=== PATIENT | female | born 2000 | race Caucasian/White ===

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

== ENCOUNTER 2020-09-07 03:49 | Inpatient (IN) ==
[2020-09-07 04:24] LABS: Appearance Urine Clear (Clear); Bilirubin Urine Negative (Negative); Blood Urine Negative (Negative); Color Urine Yellow; Glucose Urine UA Negative (Negative); Ketones Urine 2+ (Negative); Leukocyte Esterase Urine Negative (Negative); Nitrite Urine Negative (Negative); Protein Urine Negative (Negative); Specific Gravity Urine 1.024 (1.000-1.030); Urobilinogen Urine Negative (Negative); pH Urine 5.5 (4.5-7.5)
[2020-09-07 04:39] LABS: Basophils # (auto) 0.01 K/uL (0-0.2); Basophils % (auto) 0.1 %; Eosinophils # (auto) 0.11 K/uL (0-0.5); Eosinophils % (auto) 1.6 %; Hemoglobin 14.4 g/dL (12.0-16.0); Immature Granulocytes # (auto) 0.01 K/uL (0.00-0.02); Immature Granulocytes % (auto) 0.1 %; Lymphocytes # (auto) 1.41 K/uL (1.2-3.4); Mean Corpuscular Hemoglobin 34.1 pg (25-34); Mean Corpuscular Hgb Conc 35.1 g/dL (32-36); Mean Corpuscular Volume 97.2 fL (80-100); Mean Platelet Volume 10.5 fL (7.4-10.4); Monocytes # (auto) 0.43 K/uL (0.11-0.59); Monocytes % (auto) 6.4 %; Neutrophils # (auto) 4.74 K/uL (1.4-6.5); Neutrophils % (auto) 70.8 %; Platelet Count 247 K/uL (130-400); RDW Coefficient of Variation 13.8 % (11.5-14.5); RDW Standard Deviation 49.4 fL (36.4-46.3); Red Blood Count 4.22 M/uL (4.2-5.4); White Blood Count 6.71 K/uL (4.8-10.8)
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
[2020-09-07 04:43] LABS: Amphetamines+Metham, Urine Neg (Neg); Barbiturates, Urine Neg (Neg); Benzodiazepine, Urine Neg (Neg); Cocaine, Urine Neg (Neg); MDMA (Ecstacy), Urine Neg (Neg); Methadone, Urine Neg (Neg); Opiate, Urine Neg (Neg); Phencyclidine, Urine Neg (Neg)
[2020-09-07 04:44] LABS: Pregnancy Test, Urine Negative (Negative)
[2020-09-07 04:56] LABS: Alanine Aminotransferase 17 U/L (12-78); Albumin Level 3.9 gm/dl (3.4-5.0); Aspartate Aminotransferase 11 U/L (15-37); BUN Creatinine Ratio 15.7 (10-20); Blood Urea Nitrogen 9 mg/dl (7-18); Calcium 8.9 mg/dl (8.5-10.1); Carbon Dioxide 27 mmol/L (21-32); Chloride 108 mmol/L (98-107); Creatinine Clr Calc Pharmacy 135.2 ml/min; Est GFR (African American) > 150.0 ml/min; Est GFR (Non-African American) 131.6 ml/min; Glucose 86 mg/dl (70-99); Potassium 3.5 mmol/L (3.5-5.1); Sodium 139 mmol/L (136-145)
[2020-09-07 05:07] LABS: Albumin Globulin Ratio 1.1 (0.9-2); Alkaline Phosphatase 54 U/L (45-117); Bilirubin,Total 0.6 mg/dl (0.2-1); Globulin 3.4 gm/dl (2.5-4.0); Total Protein 7.3 gm/dl (6.4-8.2)
[2020-09-07 05:09] LABS: Acetaminophen < 2 ug/ml (10-30); Salicylate < 1.7 mg/dl (2.8-20)
--- NOTE | 2020-09-07 14:47 | Emergency Department Note ---
ED Visit Note Patient was signed out to me awaiting disposition. Accepted to [facility]. .
[2020-09-07] MEDS ORDERED: BISMUTH SUBSALICYLATE LIQD 236 ML PO PRN (15:20)
[2020-09-07] MEDS ORDERED: ALUMINUM/MAGNESIUM SUSP 30 ML UDC PO PRN (15:20)
[2020-09-07] MEDS ORDERED: hydrOXYzine HCl 25 MG TAB PO PRN ×2 (15:20)
[2020-09-07] MEDS ORDERED: SODIUM CHLORIDE 0.65% NA SOLN 45 ML (OCEAN) PRN (15:20)
[2020-09-07] MEDS ORDERED: ACETAMINOPHEN 325 MG TAB PO PRN (15:20)
[2020-09-07] MEDS ORDERED: MAGNESIUM HYDROXIDE SUSP 30 ML UDC PO PRN (15:20)
[2020-09-07] MEDS: LORazepam 1 MG TAB PO PRN (22:51)
[2020-09-08] MEDS: ESCITALOPRAM OXALATE 20 MG TAB PO SCH (12:47)
[2020-09-08] MEDS: ARIPiprazole 5 MG TAB PO SCH (12:47)
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
[2020-09-08] MEDS: LORazepam 1 MG TAB PO PRN (21:26)
[2020-09-09] MEDS: ESCITALOPRAM OXALATE 20 MG TAB PO SCH (09:26)
[2020-09-09] MEDS: ARIPiprazole 5 MG TAB PO SCH (09:28)
--- NOTE | 2020-09-09 10:02 | Psychiatric Progress Note ---
Date of Service September 09, 2020 Impression / Recommendations Impression 20-year-old female presenting following depression and suicidal ideation. Patient does acknowledge decompensation of depression, but is no longer acknowledging active suicidal ideation, but rather points to mood instability as responsible for her symptomatology. Patient will benefit from inpatient hospitalization for purposes of safety, stabilization, and medication management. (1) Major depression: The patient was admitted to the [facility] ([facility] mental health unit) on every 15 minute checks (behavioral with suicide precautions for safety. The patient will participate in group, recreational, and milieu therapies and will be offered additional individual and family sessions as clinically appropriate. 09/09/2020atient is compliant with medication and is denying any side effects. We will continue on current regimen, anticipating discharge in the coming days. 09/08/2020atient will be started on 2.5 mg of Abilify p.o. every morning along with 3 continuation of her Lexapro medication at 20 mg p.o. every morning. Patient does have a history of panic attacks and was formally taking Xanax medication, she will be started on Ativan medication as a replacement in case of panic or anxiety. Protective Factors Assessment Employed: No Interval History Identifying Information 20-year-old female with a history of depression presenting with decompensation. Chief Complaint "I am feeling good I think the new medicine is working.". Review of Systems Sleep Information Total Hours of Sleep: 7.75 Meal Information Percent Meal Consumed - Breakfast: 60 Percent Meal Consumed - Lunch: 65 Percent Meal Consumed - Dinner: 60 Subjective Subjective Patient seen, chart reviewed and case discussed with treatment team, nursing and social work. Patient reports a good night of sleep and strong appetite. No side effects reported or observed. Regarding mood, patient reports some improvement which they attribute to the medications as well as the therapy they have received on the unit. Denies any current suicidal ideation I spent 30 minutes with the patient, 50% of which was dedicated to counselling and coordination of care. Physical Exam Psychiatric Orientation: alert and oriented x 3 Apperance: appropriately dressed and appropriately groomed Eye Contact: good eye contact Motor Behavior: steady gait and station Speech: normal rate/rhythm/volume of speech Affect: euthymic affect Mood: + depressed mood Thought Process: goal directed thought process Thought Content: reality based without delusions Suicidal Thoughts: denies suicidal thoughts Homicidal Thoughts: denies homicidal thoughts Hallucinations: no auditory hallucinations and no visual hallucinations Cognition: recent memory grossly intact Estimated Intelligence: average estimated intelligence Insight: good insight Judgement: + limited judgement Vital Signs (Past 24 Hours) Last Vital Signs Temp 36.9 C 09/09/20 06:43 Pulse 75 09/09/20 06:44 Resp 16 09/09/20 06:43 BP 98/66 L 09/09/20 06:44 Pulse Ox 96 09/07/20 17:20 Results & Data ([facility]) Current Inpatient Medications Current Inpatient Medications: Current Inpatient Medications Acetaminophen (Acetaminophen 325 Mg Tab) 650 mg PO Q4H PRN PRN Reason: Headache or Minor Fever Stop: 10/07/20 15:19 Al Hydrox/Mg Hydrox/Simethicone (Aluminum/Magnesium Susp 30 Ml Udc) 30 ml PO Q4H PRN PRN Reason: GI Upset Stop: 10/07/20 15:19 Aripiprazole (Aripiprazole 5 Mg Tab) 2.5 mg PO QAM LISET Stop: 10/08/20 11:29 Last Admin: 09/09/20 09:28 Dose: 2.5 mg Documented by: Bismuth Subsalicylate (Bismuth Subsalicylate Liqd 236 Ml) 15 ml PO PRN PRN PRN Reason: Loose Stool Stop: 10/07/20 15:19 Escitalopram Oxalate (Escitalopram Oxalate 20 Mg Tab) 20 mg PO QAM LISET Stop: 10/08/20 08:59 Last Admin: 09/09/20 09:26 Dose: 20 mg Documented by: Hydroxyzine HCl (Hydroxyzine Hcl 25 Mg Tab) 50 mg PO HSZ PRN PRN Reason: Insomnia Stop: 10/07/20 15:19 Hydroxyzine HCl (Hydroxyzine Hcl 25 Mg Tab) 25 mg PO Q4H PRN PRN Reason: Anxiety Stop: 10/07/20 15:19 Lorazepam (Lorazepam 1 Mg Tab) 1 mg PO Q6 PRN PRN Reason: Anxiety Stop: 10/07/20 17:30 Last Admin: 09/08/20 21:26 Dose: 1 mg Documented by: Magnesium Hydroxide (Magnesium Hydroxide Susp 30 Ml Udc) 30 ml PO DAILY PRN PRN Reason: Constipation Stop: 10/07/20 15:19 Sodium Chloride (Sodium Chloride 0.65% Na Soln 45 Ml ([place])) 1 - 2 sprays NA PRN PRN PRN Reason: Nasal Dryness/Congestion Stop: 10/07/20 15:19 Mental Health & Subst Abuse Tx Therapist Name of Therapist: Dr. Greyson Tyler [place] Assistant Designer Name of Assistant Designer: Denies Post Discharge Appointments Primary Care Physician Name Of Family Doctor: Dr Aiken Contact Information Discharge Discharge Address: [address] [place] [id number]
[2020-09-09] MEDS: LORazepam 1 MG TAB PO PRN (21:23)
[2020-09-10] MEDS: ESCITALOPRAM OXALATE 20 MG TAB PO SCH (09:22)
[2020-09-10] MEDS: ARIPiprazole 5 MG TAB PO SCH (09:23)
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
== END 2020-09-10 10:45 | disposition home or self-care (01) | DRG 881 ==
LOC: ED 03:49 → 3S 15:20 → ED 15:45